=== PATIENT | male | born 1980 | race African-American/Black ===

== ENCOUNTER 2024-08-27 15:43 | Inpatient (IN) | payer SELFPAY ==
[2024-08-27] VITALS (58 sets, daily range): BP systolic 124–288; BP diastolic 73–177
[~2024-08-27] VITALS: Ht 170.2 cm; Wt 82.4 kg
--- NOTE | 2024-08-27 02:00 | NUR ---
CARDENE DRIP @0100 WAS 50 BUT PT SBP WAS INCREASED AND @0200 CARDENE DRIP WAS TITRATED TO 0200.
--- NOTE | 2024-08-27 16:00 | NUR ---
PT TO ER ROOM 10 WITH STEADY GAIT
[2024-08-27] MEDS ORDERED: LABETALOL HCL 100 MG/20 ML VIAL IV ONE (16:10)
[2024-08-27] MEDS ORDERED: MORPHINE SULFATE 4 MG/ML VIAL IV ONE (16:15)
[2024-08-27] MEDS ORDERED: ONDANSETRON HCl 4 MG/2 ML SDV IV ONE (16:15)
[2024-08-27] MEDS ORDERED: niCARdipine HCL 25 MG/10 ML SDV IV ONE ×3 (16:28→22:47)
[2024-08-27] MEDS ORDERED: hydrALAZINE HCL 20 MG/ML VIAL(1 ML) IV ONE (16:30)
[2024-08-27] MEDS ORDERED: niCARdipine HCL 25 MG in DEXTROSE 5% 240 ML IV ONE (16:30)
[2024-08-27 16:50] LABS: BASO% 0.8 % (0-3); BILIRUBIN, TOTAL 1.2 mg/dL (0.2-1.3); EOS% 1.9 % (0-8); HEMATOCRIT 40.5 % (39.0-50.0); HEMOGLOBIN 13.3 g/dl (14.0-18.0); IMMATURE GRANULOCYTES 0.5 % (0.0-5.0); LYMPH% 19.2 % (15-41); MEAN CELL VOLUME 73.6 fL CALC (80.0-100.0); MEAN CORPUSCULAR HGB 24.2 pG CALC (26.0-32.0); MEAN CORPUSCULAR HGB CONC 32.8 g/dL CAL (32.0-36.0); MONO% 8.7 % (2-13); NEUT# 6.37 thou/uL (1.82-7.42); NEUT% 68.9 % (42-76); POTASSIUM 3.4 mmol/l (3.5-5.1); RED BLOOD COUNT 5.5 mill/uL (4.70-6.10); RED CELL DISTRI WIDTH 17.7 % (11.5-15.5); TOTAL PROTEIN 9.2 g/dL (6.3-8.2)
[2024-08-27 16:55] LABS: CREATININE 3.6 mg/dL (0.7-1.3)
--- NOTE | 2024-08-27 17:03 | NUR ---
PATIENT TO AND FROM CT VIA WHEELCHAIR, ACCOMPANIED BY NURSE. ALESSIA NOTED RUNNING AT 10 AT THIS TIME.
--- NOTE | 2024-08-27 17:03 | NUR ---
PATIENT TO AND FROM CT VIA WHEELCHAIR ACCOMPANIED BY NURSE; ANTHONY CHIANG RUNNING @15.
--- NOTE | 2024-08-27 17:07 | NUR ---
PER DR. HOPKINS HE WANTS BP TO STAY BETWEEN 180-200 SYSTOLIC.
[2024-08-27 17:21] LABS: TSH, 3RD GENERATION 1.34 uIU/mL (0.47 - 4.68)
[2024-08-27] MEDS ORDERED: hydrALAZINE HCL 25 MG/TAB PO SCH (18:00)
[2024-08-27] MEDS ORDERED: MAGNESIUM HYDROXIDE 30 ML UDC PO PRN (18:00)
[2024-08-27] MEDS ORDERED: Zaleplon 5 MG/CAP PO PRN (18:00)
[2024-08-27] MEDS ORDERED: ACETAMINOPHEN 325 MG/TAB PO PRN (18:00)
[2024-08-27] MEDS ORDERED: SODIUM CHLORIDE 0.9% 1,000 ML IV SCH (18:00)
--- NOTE | 2024-08-27 18:00 | NUR ---
PATIENT NOTED LYING IN BED WITH NO ACUTE DISTRESS NOTED. HE DENIES ANY HEADACHES AT THIS TIME.
--- NOTE | 2024-08-27 19:00 | NUR ---
REPORT GIVEN TO ONCOMING NURSE, ALESSIA NOTED RUNNING AT 10 AT THIS TIME.
--- NOTE | 2024-08-27 19:30 | NUR ---
PT CARE ASSUMED, REPORT RECEIVED FROM RENY ROBLES AT THIS TIME. GTT NOTED AT 10 MG/HR, B/P MONITORING AND CARDIAC MONITORING IN PLACE, PT ROOM ASSIGNMENT GIVEN, PRIOR NURSE VERBALIZES WILL CALL REPORT AT THIS TIME.PT UPDATED ON PLAN OF CARE.
--- NOTE | 2024-08-27 19:39 | NUR ---
REPORT CALLED TO CODI OGLESBY.
--- NOTE | 2024-08-27 20:30 | NUR ---
RECEIVED BEDSIDE REPORT FROM RENY OAKES .ALESSIA CHIANG IS CURRENTLY AT 15MH/HR. DIRECTOR DECISION SUPPORT JANET [id number] USED FOR ADMISSION.
--- NOTE | 2024-08-27 20:30 | NUR ---
PT TRANSPORTED TO ICU AT THIS TIME BY ICHTHYOLOGY TEACHER, PT GTT AT 15MG/HR WITH PT NOTED IMPROVED B/P AT 177/96. NURSES X2 AT BEDSIDE. PT VOICES APPRECIATION OF CARE AT THIS TIME. PT HAS ALL BELONGINGS.
[2024-08-27] MEDS ORDERED: METOPROLOL TARTRATE 50 MG/TAB PO SCH (21:25)
--- NOTE | 2024-08-27 22:00 | NUR ---
PERFORMED ADMISSION WITH PATIENT USING JAZIEL DEMETRIO RUEDA ID #[id number]. PATIENT EXPLAINED THAT HE HAS A PMH OF HTN IN [facility] AND THAT HE WAS ON BLOOD PRESSURE MEDICATIONS BUT HE WAS NOT SURE OF THE NAME NOR THE DOSAGE. HE HAD STOPPED TAKING THE MEDS FROM 2023 AND WHEN HE TOOK HIS MEDICATION, HE WAS NOT COMPLIANT IN TAKING IT EVERY DAY. PT STATES "I ONLY TAKE MY BLOOD PRESSURE MEDICATION WHEN I FELT FUNNY". PT STATES THAT HE IS LIVING WITH A FRIEND AND HAS NO FAMILY SUPPORT, HE HAS BEEN TRYING TO GET ON MEDICAID TO CONTINUE MEDICATION. PT WAS EDUCATED ABOUT THE CARDENE DRIP, HYDRALAZINE AND METOPROLOL.
--- NOTE | 2024-08-27 23:00 | NUR ---
PATIENT REQUESTED TO GET SOMETHING TO EAT. EDUCATED THE PATIENT ABOUT REDUCTION OF SALT TO DIET. TOLD THE PATIENT THAT THERE IS A 2 GM SODIUM DIET ORDERED. PATIENT NEEDS FURTHER TEACHING. LAB CALLED FOR TROPONIN REPEAT OF 0.123. CALLED DR. GREGORIO AND HE ORDERED EKG STAT.
[2024-08-28] VITALS (93 sets, daily range): BP systolic 107–217; BP diastolic 59–112
--- NOTE | 2024-08-28 | NUR ---
@2100: PT CARDENE DRIP WAS 150ML/HR. @2200: NO CHANGE TO CARDENE DRIP. GIVEN HYDRALAZINE. @2300: CARDENE DRIP WAS 125ML/HR. @0000: CARDENE DRIP IS 100ML/HR.
--- NOTE | 2024-08-28 02:00 | NUR ---
PATIENT IS RESTING.
[2024-08-28] MEDS ORDERED: niCARdipine HCL 25 MG/10 ML SDV IV ONE ×2 (02:20→07:28)
--- NOTE | 2024-08-28 04:00 | NUR ---
PATIENT'S CARDENE IS TITRATED TO 50ML/HR.
[2024-08-28 05:23] LABS: ALBUMIN 4.6 g/dL (3.2-5.0); BILIRUBIN, TOTAL 0.9 mg/dL (0.2-1.3); CREATININE 3.8 mg/dL (0.7-1.3); POTASSIUM 3.8 mmol/l (3.5-5.1)
[2024-08-28 05:26] LABS: BASO% 0.4 % (0-3); EOS% 0.1 % (0-8); HEMATOCRIT 36.9 % (39.0-50.0); HEMOGLOBIN 12.5 g/dl (14.0-18.0); IMMATURE GRANULOCYTES 0.2 % (0.0-5.0); MEAN CELL VOLUME 73.4 fL CALC (80.0-100.0); MEAN CORPUSCULAR HGB 24.9 pG CALC (26.0-32.0); MEAN CORPUSCULAR HGB CONC 33.9 g/dL CAL (32.0-36.0); MONO% 6.8 % (2-13); NEUT# 9.2 thou/uL (1.82-7.42); NEUT% 83.5 % (42-76); RED BLOOD COUNT 5.03 mill/uL (4.70-6.10); RED CELL DISTRI WIDTH 17.6 % (11.5-15.5)
--- NOTE | 2024-08-28 06:00 | NUR ---
@0500 PT WAS A 25ML/HOUR ON THE CARDENE DRIP AND @0600 SBP WAS IN THE 170s AND PT DRIP WAS 50ML/HR.
--- NOTE | 2024-08-28 08:00 | NUR ---
REPORT RECEIVED FROM NIGHT NURSE. PT ADMITTED WITH [facility]. CURRENTLY ON CARDENE GTT. PT IS CREOLE SPEAKING PRIMARY LANGUAGE. LUNGS CLEAR; PT IS ON RA. HEART SOUNDS S1S2; SR ON TELE, THOUGH EKG CHANGES NOTED AND TROPONINS TRENDING UP. PT DOES NOT REPORT ANY PAIN. BS ACTIVE; ABDOMEN DISTENDED/FIRM/NON-TENDER. VOIDS WITH URINAL AT BEDSIDE. PULSES STRONG. SKIN W/D/I. CALL LIGHT IN REACH. VSS AT THIS TIME.
[2024-08-28 08:59] LABS: CHOLESTEROL HDL RATIO 3.5 (<4.4 (CALC))
[2024-08-28] MEDS ORDERED: ASPIRIN EC 81 MG/TAB PO SCH (09:00)
[2024-08-28] MEDS ORDERED: METOPROLOL TARTRATE 50 MG/TAB PO SCH (09:00)
[2024-08-28] MEDS ORDERED: amLODIPine BESYLATE 5 MG/TAB PO SCH (09:00)
--- NOTE | 2024-08-28 10:00 | NUR ---
NO CHANGES TO PT STATUS. ATTEMPTING TO WEAN OFF CARDENE. PT DENIES ANY CHEST PAIN. CALL LIGHT AND BELONGINGS WITHIN REACH. VSS.
--- NOTE | 2024-08-28 11:00 | NUR ---
CARDENE GTT TURNED OFF PER MD'S ORDERS.
--- NOTE | 2024-08-28 11:53 | NUR ---
patient resting in bed. patient denies any chest pain or sob at this time. pateint breathing even and unlabored. patient alert and oriented times three
--- NOTE | 2024-08-28 13:00 | NUR ---
NO CHANGES TO PT STATUS. BP MAINTAINING OFF CARDENE GTT. VISITOR AT BEDSIDE. PT STILL DENIES ANY CHEST PAIN. CALL LIGHT AND BELONGINGS WITHIN REACH. VSS.
[2024-08-28] MEDS ORDERED: hydrALAZINE HCL 20 MG/ML VIAL(1 ML) IV PRN (13:45)
[2024-08-28] MEDS ORDERED: LABETALOL HCL 100 MG/TAB PO SCH (14:00)
--- NOTE | 2024-08-28 14:40 | NUR ---
NO CHANGES TO PT STATUS. ASLEEP IN BED. BP CONTROLLED AT THIS TIME.
--- NOTE | 2024-08-28 16:16 | NUR ---
NO CHANGES TO PT STATUS. LYING IN BED. ALL NEEDS MET. BP WELL CONTROLLED.
--- NOTE | 2024-08-28 18:00 | NUR ---
NO CHANGES TO PT STATUS. LYING IN BED. GIVEN TYLENOL FOR HEADACHE. CALL LIGHT AND BELONGINGS WITHIN REACH. VSS.
--- NOTE | 2024-08-28 19:57 | NUR ---
PT HAD COMPLAINTS OF JAW TIGHTENING AND L ARM TIGHTENING. EKG ORDER PLACED, RT COMPLETED. NO SIGNIFICANT EKG CHANGES. DR. GREGORIO NOTIFIED, RBTO TO PLACE PT ON NITRO GTT. AND REPEAT TROP IN AM.
[2024-08-28] MEDS ORDERED: NITROGLYCERIN 25 MG/250 ML IV PRN (20:25)
--- NOTE | 2024-08-28 20:39 | NUR ---
NITRO GTT INITIATED @ 5 MCG/MIN. STAT TROP ORDERED PER PROVIDER ORDERS. LAB @ BEDSIDE
[2024-08-28] MEDS ORDERED: ATORVASTATIN CALCIUM 40 MG/TAB PO SCH (21:00)
--- NOTE | 2024-08-28 21:28 | NUR ---
CRITICAL TROP 0.447. DR GREGORIO NOTIFIED, CONTINUE W/ CARE ORDERED. NITRO GTT @ 5 MCG/MIN. PT STATES JAW TIGHTENING AND L ARM TIGHTENING HAS DECREASED.
--- NOTE | 2024-08-28 21:52 | NUR ---
VISOR INSTALLER NOTFIED OF SITUATION, LAB RESULTS, PT SYMPTOMS, ETC. VISOR INSTALLER NOTIFIED DIMA, DIRECTOR OF ICU. CONFIRMED CONTINUATION OF CARE PER PROVIDER ORDERS.
[2024-08-29] VITALS (73 sets, daily range): BP systolic 98–231; BP diastolic 73–117
--- NOTE | 2024-08-29 00:04 | NUR ---
PT RESTING COMFORTABLY, DENIES ANY PAIN. NO CHANGES. V/S STABLE. CALL LIGHT IN REACH
--- NOTE | 2024-08-29 02:00 | NUR ---
NO CHANGES NOTED, PT DENIES ANY PAIN, PT HAS NO COMPLAINTS. V/S STABLE. CALL LIGHT IN REACH
--- NOTE | 2024-08-29 04:00 | NUR ---
NITRO GTT TURNED OFF, HR IS 70, PT DENIES PAIN, HAS NO COMPALINTS. BP IS 147/94. CALL LIGHT IN REACH
[2024-08-29 05:55] LABS: CREATININE 3.4 mg/dL (0.7-1.3); POTASSIUM 3.8 mmol/l (3.5-5.1)
[2024-08-29 06:05] LABS: ALBUMIN 3.4 g/dL (3.2-5.0); BILIRUBIN, TOTAL 0.3 mg/dL (0.2-1.3); TOTAL PROTEIN 6.1 g/dL (6.3-8.2)
--- NOTE | 2024-08-29 06:38 | NUR ---
PT RESTFUL, DENIES PAIN, NO DISCOMFORT NOTED. CALL LIGHT IN REACH
--- NOTE | 2024-08-29 08:00 | NUR ---
REPORT RECEIVED FROM NIGHT NURSE. PT HAD EPISODE OF CHEST PAIN LAST NIGHT, THIS MORNING DENIES ANY CHEST PAIN OR DISCOMFORT ANYWHERE. MD AWARE OF INCREASING TROPONINS. PT IS NSR ON TELE WITH WHAT APPEARS TO BE ST DEPRESSION; NO CHANE FROM LAST NIGHT. LUNGS CLEAR; PT IS ON RA. BS ACTIVE. PULSES STRONG. AFEBRILE. PT GIVEN BREAKFAST TRAY. CALL LIGHT IN REACH. BP ELEVATED, PT HAS SCHEDULED MORNING MEDS TO ADDRESS.
--- NOTE | 2024-08-29 10:00 | NUR ---
NO CHANGES TO PT STATUS. PT DENIES ANY CHEST PAIN. LYING IN BED. CALL LIGHT AND BELONGINGS WITHIN REACH. VSS.
[2024-08-29] MEDS ORDERED: HYDROcodone 5 MG/Acetaminophen 325 MG/COMBO PO PRN (11:55)
--- NOTE | 2024-08-29 12:00 | NUR ---
NO CHANGES TO PT STATUS. PT STILL DENIES ANY PAIN OR DISCOMFORT. VISITOR AT BEDSIDE. CALL LIGHT IN REACH.
[2024-08-29] MEDS ORDERED: ISOSORBIDE MONONITRATE 30 MG TAB PO SCH (13:00)
--- NOTE | 2024-08-29 14:00 | NUR ---
NO CHANGES TO PT STATUS. LYING IN BED TALKING ON PHONE. DENIES ANY NEEDS. DENIES ANY PAIN. CALL LIGHT AND BELONGINGS WITHIN REACH. VSS.
--- NOTE | 2024-08-29 16:00 | NUR ---
NO CHANGES TO PT STATUS. PT ASLEEP IN BED. VSS. CALL LIGHT IN REACH.
--- NOTE | 2024-08-29 18:00 | NUR ---
NO CHANGES TO PT STATUS. GIVEN DINNER TRAY. CALL LIGHT AND BELONGINGS WITHIN REACH. VSS.
--- NOTE | 2024-08-29 20:25 | NUR ---
pt resting in bed; offers no complaints; shift assessment completed; b/p improved from previous; pt medicated just prior to this nurse recieving report; pt able to reposition self for comfort; offers no complaints; call [facility] within reach; iv site intact with ivf infusing at prescribed rate; encouraged to call for any needs; pt able to make needs known; denies need for LL at this time
--- NOTE | 2024-08-29 22:00 | NUR ---
pt resting; no s/s of distress noted; pt uses urinal w/o incident; b/p remains controlled, will continue to monitor.
[2024-08-30] VITALS (24 sets, daily range): BP systolic 126–185; BP diastolic 70–115
--- NOTE | 2024-08-30 00:10 | NUR ---
pt resting; continues to use urinal without incident; b/p remains controlled; ivf continue at prescribed rate w/o incident: will continue to monitor.
--- NOTE | 2024-08-30 00:10 | NUR ---
pt resting; continues to use urinal without incident; b/p remains controlled with diastolic slightly elevated; will continue to monitor.
--- NOTE | 2024-08-30 02:05 | NUR ---
pt resting; no s/s of distress noted; b/p remains controlled with diastolic slightly elevated; will continue to monitor.
--- NOTE | 2024-08-30 04:33 | NUR ---
pt resting no s/s of distress or discomfor, tele continues w/o incident; b/p remains within range with elevated diastolic.
[2024-08-30 05:40] LABS: HEMATOCRIT 32.7 % (39.0-50.0); HEMOGLOBIN 10.7 g/dl (14.0-18.0); MEAN CELL VOLUME 76.2 fL CALC (80.0-100.0); MEAN CORPUSCULAR HGB 24.9 pG CALC (26.0-32.0); MEAN CORPUSCULAR HGB CONC 32.7 g/dL CAL (32.0-36.0); RED BLOOD COUNT 4.29 mill/uL (4.70-6.10); RED CELL DISTRI WIDTH 18.3 % (11.5-15.5)
--- NOTE | 2024-08-30 05:40 | NUR ---
lab at bedside for am blood draws
[2024-08-30 05:48] LABS: ALBUMIN 3.5 g/dL (3.2-5.0); CREATININE 3.2 mg/dL (0.7-1.3); POTASSIUM 3.9 mmol/l (3.5-5.1); TOTAL PROTEIN 6.3 g/dL (6.3-8.2)
[2024-08-30 05:52] LABS: BILIRUBIN, TOTAL 0.7 mg/dL (0.2-1.3)
--- NOTE | 2024-08-30 07:16 | NUR ---
RECIEVED REPORT FROM RENY MEYER. PT IS LYING IN BED WITH EYES CLOSED. EASILY AWOKEN AND IS ABLE TO RESPOND TO NURSE. NS @ 80 ML/HR RUNNING TO 20G IN R AC. PT CLAIMS NO PAIN, SOB. NO NEEDS AT THIS TIME.
--- NOTE | 2024-08-30 07:59 | NUR ---
LEFT MESSAGE ON DR SERRANO CELL PHONE VOICE MAIL RE:CONSULT.
--- NOTE | 2024-08-30 14:50 | NUR ---
PT ARRIVES TO ROOM 279 FROM ICU. PT IS AOX4, NO COMPLAINTS AT THIS TIME. CALL LIGHT IN REACH VITALS STABLE BP IS ELEVATED PROVIDER AWARE
--- NOTE | 2024-08-30 20:00 | NUR ---
RECEIVED REPORT FROM DAYSHIFT NURSE. PT NOTED LAYING IN BED SUPINE, ON THE PHONE AT THIS TIME. PT IS A/OX3, CREOLE SPEAKING WITH ONLY MINOR UNDERSTANDING OF SWAZI. PT IS ON RM AIR, VSS, DENIES ANY PAIN. NURSING ASSESSMENT COMPLETED AND IV SITE APPEARS HEALTHY AND INTACT, FLUSHES W/O DIFFICULTY. INFORMED OF MED SCHEDULE AND PLAN OF CARE. VSS. NO S/S OF DISTRESS. CALL LIGHT WITHIN REACH AND SAFETY PRECAUTIONS IN PLACE.
[2024-08-30] MEDS ORDERED: LISINOPRIL 20 MG/TAB PO SCH (21:05)
[2024-08-31 00:12] VITALS: BP 139/83
--- NOTE | 2024-08-31 00:27 | NUR ---
ADMINSITERED SCHEDULED MED PER EMAR, PT TOELRATED WELL. PT LAYING IN BED SUPINE, RESTING COMFORTABLY WITH EYES CLOSED. VSS. NO S/S OF DISTRESS. CALL LIGHT WITHIN REACH AND SAFETY PRECAUTIONS IN PLACE.
[2024-08-31 04:00] VITALS: BP 148/63
[2024-08-31 06:21] LABS: URINE BILIRUBIN - DIPSTICK Negative (NEGATIVE); URINE BLOOD DIPSTICK Trace-intact (NEGATIVE); URINE CLARITY Clear; URINE GLUCOSE - DIPSTICK 100 mg/dL (NEGATIVE); URINE KETONE Negative (NEGATIVE); URINE LEUK ESTERASE Negative (Negative); URINE NITRITE - DIPSTICK Negative (Negative); URINE PROTEIN - DIPSTICK 100 mg/dL (NEG-TRACE); URINE SPECIFIC GRAVITY 1.015; URINE UROBILINOGEN - DIPSTICK 0.2 E.U./dL (0.2)
[2024-08-31 06:22] LABS: URINE COLOR Yellow
[2024-08-31 06:24] LABS: URINE BACTERIA FEW hpf; URINE EPITHELIAL CELLS FEW EPI/hpf (0-FEW)
[2024-08-31 07:01] LABS: MAGNESIUM 2.1 mg/dL (1.6-2.3)
[2024-08-31 07:04] LABS: BASO% 0.5 % (0-3); EOS% 1.6 % (0-8); HEMATOCRIT 33.7 % (39.0-50.0); IMMATURE GRANULOCYTES 0.1 % (0.0-5.0); LYMPH% 13.7 % (15-41); MEAN CELL VOLUME 76.4 fL CALC (80.0-100.0); MEAN CORPUSCULAR HGB 24.9 pG CALC (26.0-32.0); MEAN CORPUSCULAR HGB CONC 32.6 g/dL CAL (32.0-36.0); MONO% 12.1 % (2-13); NEUT# 5.36 thou/uL (1.82-7.42); RED BLOOD COUNT 4.41 mill/uL (4.70-6.10); RED CELL DISTRI WIDTH 18.3 % (11.5-15.5)
[2024-08-31 07:11] LABS: ALBUMIN 3.3 g/dL (3.2-5.0); BILIRUBIN, TOTAL 0.5 mg/dL (0.2-1.3); CREATININE 3.3 mg/dL (0.7-1.3); POTASSIUM 3.4 mmol/l (3.5-5.1); TOTAL PROTEIN 6.2 g/dL (6.3-8.2)
[2024-08-31 07:40] VITALS: BP 134/82
[2024-08-31] MEDS ORDERED: ATORVASTATIN CA40 MG PO (11:27)
[2024-08-31] MEDS ORDERED: ISOSORB MONO30 MG PO (11:27)
[2024-08-31] MEDS ORDERED: NORMODYNE/TRAN100 MG PO (11:28)
[2024-08-31] MEDS ORDERED: AMLODIPINE BESYL5 MG PO (11:28)
[2024-08-31] MEDS ORDERED: ADLT ASA LOW81 MG PO (11:28)
[2024-08-31] MEDS ORDERED: LISINOPRIL20 M1 PO (11:28)
[2024-08-31] MEDS ORDERED: HYDRALAZINE HYD25 MG PO (11:29)
[2024-08-31 11:35] VITALS: BP 146/90
[2024-08-31 16:13] VITALS: BP 146/78
[2024-08-31] MEDS ORDERED: IRON SUCROSE COMPLEX 200 MG in SODIUM CHLORIDE 0.9% 100 ML IV SCH (17:10)
== END 2024-08-31 17:26 | disposition home or self-care (01) | DRG 305 ==
LOC: ED 15:43 → ED-I 17:01 → ED 17:32 → ICU 17:33 → MS2 08-30 14:15
PROVIDERS: Family Medicine; Internal Medicine Nephrology; Nurse Practitioner Family; ADMIT Internal Medicine; ATTEND Internal Medicine
DX: I16.1 Hypertensive emergency (principal); N17.9 Acute kidney failure, unspecified; I24.89 Other forms of acute ischemic heart disease; E87.1 Hypo-osmolality and hyponatremia; I12.9 Hypertensive chronic kidney disease with stage 1 through stage 4 chronic kidney disease, or unspecified chronic kidney disease; N18.30 Chronic kidney disease, stage 3 unspecified; I70.1 Atherosclerosis of renal artery; D64.9 Anemia, unspecified; E87.6 Hypokalemia
CPT/HCPCS: J0360; J1265; J1756; J1920; J2305; J2405